=== PATIENT | male | born 1995 | race Caucasian/White ===

== ENCOUNTER 2024-02-29 16:31 | Emergency (ER) | payer OTHER ==
[2024-02-29 16:52] VITALS: BP 150/100; PULSE 74; RESP 18; TEMP 97.2; O2SAT 98
[2024-02-29] MEDS ORDERED: NORCO 5/325 MG ONE (17:27)
[2024-02-29] MEDS ORDERED: TORAdol 30 mg Injection ONE (17:27)
[2024-02-29] MEDS: TORAdol 30 mg Injection IM ONE (17:29)
[2024-02-29] MEDS: NORCO 5/325 MG PO ONE (17:29)
--- NOTE | 2024-02-29 17:42 | ERPHSYRPT ---
- History of Present Illness Time Seen by Provider: 02/29/24 17:41 Source: patient Exam Limitations: no limitations Patient Subjective Stated Complaint: PT states "I smashed my finger between two boards." Triage Nursing Assessment: Pt presented alert and oriented X 3, skin wpd. PT ambulates with an upright steady gait, able to speak in clear full sentences. PT has blow out wound to second digit right hand Physician History: 28-year-old male presents to emergency department for evaluation of injury to his right finger. Patient states he "smashed" his fingers between 2 boards today while at work. Patient went to an urgent care. X-ray was done. No fractures observed. We do have a copy of the x-ray report. Patient states that he was sent here by the urgent care for pain control. No other injuries reported. Tetanus up-to-date. Pain described as an ache that is localized. No radiation. Pain worse with movement and palpation. Pain improved with rest. Patient voices no other complaints or concerns at this time. Portions of this note were created with voice recognition technology. There may be grammatical, spelling, punctuation or sound alike errors Timing/Duration: today Severity: moderate Modifying Factors: Improves With: nothing Associated Symptoms: denies symptoms Allergies/Adverse Reactions: No Known Drug Allergies Allergy (Verified 02/29/24 16:51) Hx Tetanus, Diphtheria Vaccination/Date Given: Yes Hx Influenza Vaccination/Date Given: No Hx Pneumococcal Vaccination/Date Given: No Immunizations Up to Date: No Travel Risk - International Travel Have you traveled outside of the country in past 3 weeks: No - Emerging Infectious Disease Are you exhibiting symptoms associated with any current EIDs: No - Review of Systems Constitutional: No Symptoms, No Fever, No Chills Eyes: No Symptoms Ears, Nose, & Throat: No Symptoms Respiratory: No Symptoms, No Cough, No Dyspnea Cardiac: No Symptoms, No Chest Pain, No Edema, No Syncope Abdominal/Gastrointestinal: No Symptoms, No Abdominal Pain, No Nausea, No Vomiting, No Diarrhea Genitourinary Symptoms: No Symptoms, No Dysuria Musculoskeletal: No Symptoms, No Back Pain, No Neck Pain Skin: No Symptoms, No Rash Neurological: No Symptoms, No Dizziness, No Focal Weakness, No Sensory Changes Psychological: No Symptoms Endocrine: No Symptoms Hematologic/Lymphatic: No Symptoms Immunological/Allergic: No Symptoms All Other Systems: Reviewed and Negative - Past Medical History Pertinent Past Medical History: No - Past Surgical History Past Surgical History: Yes Other Surgical History: spinal cord surgery - Social History Smoking Status: Never smoker Exposure to second hand smoke: No Drug Use: none - Social Determinants of Health Will the patient participate in the screening: Yes Do you worry about a steady place to live?: No Do you have any problems with any of the following?: No known problems In the past 12 months,have you had to go without utilities?: No Transportation Issues: No Has anyone in your support network made you feel unsafe?: No Have you or anyone in your house had to go without enough: No - Nursing Vital Signs Nursing Vital Signs: Initial Vital Signs Temperature 97.2 F 02/29/24 16:45 Pulse Rate 74 02/29/24 16:45 Respiratory Rate 18 02/29/24 16:45 Blood Pressure 150/100 02/29/24 16:45 O2 Sat by Pulse Oximetry 98 02/29/24 16:45 Pain Scale Pain Intensity 10 - Physical Exam General Appearance: no apparent distress, alert Eye Exam: PERRL/EOMI, eyes nml inspection Ears, Nose, Throat Exam: normal ENT inspection, TMs normal, pharynx normal, moist mucous membranes Neck Exam: normal inspection, non-tender, supple, full range of motion Respiratory Exam: normal breath sounds, lungs clear, airway intact, No respiratory distress Cardiovascular Exam: regular rate/rhythm, normal heart sounds, normal peripheral pulses Gastrointestinal/Abdomen Exam: soft, normal bowel sounds, No tenderness, No mass Back Exam: normal inspection, normal range of motion, No CVA tenderness, No vertebral tenderness Extremity Exam: normal inspection, normal range of motion, pelvis stable Neurologic Exam: alert, oriented x 3, cooperative, normal mood/affect, nml cerebellar function, nml station & gait, sensation nml, No motor deficits Skin Exam: normal color, warm, dry, No rash Lymphatic Exam: No adenopathy SpO2 Interpretation: normal SpO2: 98 O2 Delivery: Room Air - Course Nursing assessment & vital signs reviewed: Yes Ordered Tests: Medication Summary Generic Name Dose Route Start Last Admin Trade Name Freq PRN Reason Stop Dose Admin Amoxicillin/Clavulanate Potassium 875 mg 02/29/24 18:00 Amox Tr/Potassium Clavulanate 875 Mg Tablet PO 02/29/24 18:01 STAT ONE Discontinued Medications Generic Name Dose Route Start Last Admin Trade Name Kristen PRN Reason Stop Dose Admin Hydrocodone Bitart/Acetaminophen 1 tab 02/29/24 17:06 02/29/24 17:29 Hydrocodone/Apap 5/325 1 Tab Tablet PO 02/29/24 17:07 1 tab STAT ONE Administration Hydrocodone Bitart/Acetaminophen Confirm 02/29/24 17:27 Hydrocodone/Apap 5/325 1 Tab Tablet Administered 02/29/24 17:28 Dose 1 tab .ROUTE .STK-MED ONE Ketorolac Tromethamine 30 mg 02/29/24 17:06 02/29/24 17:29 Ketorolac Tromethamine 30 Mg/Ml Inj IM 02/29/24 17:07 30 mg STAT ONE Administration Ketorolac Tromethamine Confirm 02/29/24 17:27 Ketorolac Tromethamine 30 Mg/Ml Inj Administered 02/29/24 17:28 Dose 30 mg .ROUTE .STK-MED ONE - Progress Progress: improved Progress Note: 28-year-old male presents to emergency department for evaluation of a finger injury. X-ray done at outside facility was negative for fracture. Physical exam reveals extruded fat from the finger. I consulted with our orthopedist Dr. Garcia who advised sending patient to the orthopedic clinic tomorrow morning at 8 AM. Patient received a dose of Augmentin in our ED. Toradol administered as well. Oral [place] administered for pain control. Pain well-controlled at this time. We will discharge patient home. A prescription for Toradol and Augmentin forwarded to patient's pharmacy. Patient agrees to follow-up in the orthopedic clinic as per the referral. Wound was irrigated and dressed with a bulky dressing. Patient understands plan of care and agrees to follow-up as discussed. He voices no other complaints or concerns at this time. Portions of this note were created with voice recognition technology. There may be grammatical, spelling, punctuation or sound alike errors Complexity problem addressed is moderate acute complicated. No critical care time. Complex of data reviewed and analyzed is extensive. Documentation from outside facility reviewed in the form of a x-ray report. Management discussed with on-call orthopedic surgeon. Test ordered test reviewed results analyzed and correlated clinically with history and physical exam. Risk of complication and or risk morbidity/mortality patient management is low. Vital stable time spent to discharge patient approximately 15 minutes. Plan of care established for shared decision making. No social determinants of health present impede follow-up. 02/29/24 18:03 02/29/24 18:05 Counseled pt/family regarding: diagnosis - Departure Departure Disposition: Home Clinical Impression: Finger contusion, Laceration Condition: Stable Critical Care Time: No Referrals: DOCTOR,NO FAMILY [Primary Care Provider] - Follow up/PCP as directed NOEMI JOHNS MD [ACTIVE STAFF] - Follow up/PCP as directed Additional Instructions: Discharge/Care Plan MONI PÉREZ was seen on 02/29/24 in the Emergency Room. The patient was counseled regarding Diagnosis,Lab results, Imaging studies, need for follow up and when to return to the Emergency Room. Prescriptions given: Discharge Note I have spoken with the patient and/or caregivers. I have explained the patient's condition, diagnosis and treatment plan based on the information available to me at this time. I have answered the patient's and/or caregiver's questions and addressed any concerns. The patient and/or caregivers have as good understanding of the patient's diagnosis, condition and treatment plan as can be expected at this point. The vital signs have been stable. The patient's condition is stable and appropriate for discharge from the emergency department. The patient will pursue further outpatient evaluation with the primary care physician or other designated or consulting physician as outlined in the discharge instructions. The patient and/or caregivers are agreeable to this plan of care and follow-up instructions have been explained in detail. The patient and/or caregivers have received these instruction. The patient/and or caregivers are aware that any significant change in condition or worsening of symptoms should prompt an immediate return to this or the closest emergency department or call 911. Prescriptions: Amox Tr/Potass Clav. 875 mg [Augmentin 875-125 Tablet] 875 mg PO BID 7 Days #14 tablet Ketorolac Trometh 10 mg Tab [TORAdol 10 MG TABLET] 10 mg PO TID 5 Days #15 tablet Outpatient Orders: Ortho Referral Time Frame: 1 Day, Facility: [facility], Location: [facility]
[2024-02-29] MEDS ORDERED: BACIGUENT PACKET ONE (18:02)
[2024-02-29] MEDS ORDERED: Augmentin 875-125 Tablet ONE (18:02)
[2024-02-29] MEDS: Augmentin 875-125 Tablet PO ONE (18:11)
== END 2024-02-29 18:23 | disposition home or self-care (01) ==
LOC: ED 16:31
DX: M79.644 Pain in right finger(s) (principal); S67.10XA Crushing injury of unspecified finger(s), initial encounter; S61.219A Laceration without foreign body of unspecified finger without damage to nail, initial encounter
CPT/HCPCS: 96372; 99283; J1885; A9270-GY